=== PATIENT | female | born 1990 | race Two or more races ===

== ENCOUNTER 2017-09-01 23:43 | Observation (INO) | payer OTHER ==
[2017-09-02] MEDS ORDERED: NIFEdipine 10 MG CAP ONE (00:34)
[2017-09-02] MEDS ORDERED: NIFEdipine 10 MG CAP PO ONE (00:45)
[2017-09-02] MEDS ORDERED: PREN-153 OR (01:12)
== END 2017-09-02 00:51 | disposition left against medical advice (07) | DRG 781 ==
LOC: LDRP 23:43
PROVIDERS: ADMIT Specialist; ATTEND Specialist
DX: O26.893 Other specified pregnancy related conditions, third trimester (principal); N89.8 Other specified noninflammatory disorders of vagina; R10.30 Lower abdominal pain, unspecified; Z3A.35 35 weeks gestation of pregnancy
CPT/HCPCS: 59025; 81002; G0378

== ENCOUNTER 2019-09-26 17:40 | Observation (INO) | payer OTHER ==
[~2019-09-26 17:40] MED LIST: PREN-153 OR
== END 2019-09-26 19:31 | disposition home or self-care (01) | DRG 833 ==
LOC: LDRP 17:40
PROVIDERS: ADMIT Specialist; ATTEND Specialist
DX: O60.00 Preterm labor without delivery, unspecified trimester (principal); Z3A.00 Weeks of gestation of pregnancy not specified
CPT/HCPCS: 59025; 76815; 81002; G0378

== ENCOUNTER → 2020-06-25 | Outpatient (CLI) | payer OTHER | END | disposition home or self-care (01) | LOC: LAB 08:32 | PROVIDERS: ATTEND Preventive Medicine Preventive Medicine/Occupational Environmental Medicine | DX: Z02.1 Encounter for pre-employment examination (principal) | CPT/HCPCS: 36415; 86706; 86735; 86762; 86765; 86787 ==

== ENCOUNTER → 2021-11-04 | Outpatient (CLI) | payer BC ==
[~2021-11-04] MED LIST changes: -PREN-153 OR; +PREN1TAB71 OR
[2021-11-04 08:40] LABS: Basophils # (auto) 0 10 ^3/uL (0-0.2); Basophils % (auto) 0.6 % (0.0-2.0); Eosinophils # (auto) 0.1 10 ^3/uL (0-0.8); Eosinophils % (auto) 1.1 % (0.0-7.0); Hematocrit 39.9 % (36.0-46.0); Hemoglobin 13.9 g/dL (12.2-16.2); Lymphocytes # (auto) 1.9 10 ^3/uL (0.4-5.4); Lymphocytes % (auto) 23.3 % (10.0-50.0); Mean Corpuscular Hemoglobin 29.9 pg (28.0-32.0); Mean Corpuscular Hgb Conc. 34.9 g/dL (32.0-36.0); Mean Corpuscular Volume 85.9 fL (80.0-100.0); Monocytes # (auto) 0.6 10 ^3/uL (0-1.3); Monocytes % (auto) 6.8 % (0.0-12.0); Neutrophils # (auto) 5.7 10 ^3/uL (1.6-8.6); Neutrophils % (auto) 68.2 % (37.0-80.0); Red Blood Cells 4.65 10^6/uL (4.0-5.20); Red Cell Distribution Width 13.7 % (11.8-14.3); White Blood Cell 8.3 10^3/uL (4.4-10.8)
[2021-11-04 09:09] LABS: Albumin 3.8 g/dL (3.4-5.0); Calcium 8.6 mg/dL (8.5-10.1)
[2021-11-04 09:13] LABS: Bilirubin, Total 0.6 mg/dL (0.2-1.0); Total Protein 7.9 g/dL (6.4-8.2)
== END | disposition home or self-care (01) ==
LOC: LAB 08:25
PROVIDERS: ATTEND Nurse Practitioner Family
DX: Z00.00 Encounter for general adult medical examination without abnormal findings (principal); B00.2 Herpesviral gingivostomatitis and pharyngotonsillitis; M79.671 Pain in right foot
CPT/HCPCS: 36415; 80053; 85025

== ENCOUNTER 2022-01-07 08:46 | Emergency (ER) | payer BC, OTHER ==
[~2022-01-07] VITALS: Ht 162.6 cm; Wt 170.0 kg
[2022-01-07 09:03] VITALS: BP 114/81
== END 2022-01-07 13:27 | disposition left against medical advice (07) ==
LOC: EEVIPCON 08:46 → ER 08:46
DX: S61.239A Puncture wound without foreign body of unspecified finger without damage to nail, initial encounter (principal); Z53.21 Procedure and treatment not carried out due to patient leaving prior to being seen by health care provider; W46.1XXA Contact with contaminated hypodermic needle, initial encounter; Y93.89 Activity, other specified; Y92.89 Other specified places as the place of occurrence of the external cause; Y99.0 Civilian activity done for income or pay
CPT/HCPCS: 36415; 86703; 86706; 86803; 87340

== ENCOUNTER → 2022-01-16 | Outpatient (CLI) | payer BC | END | disposition home or self-care (01) | LOC: LAB 14:47 | PROVIDERS: ATTEND Podiatrist | DX: S92.901A Unspecified fracture of right foot, initial encounter for closed fracture (principal); X58.XXXA Exposure to other specified factors, initial encounter; Y93.89 Activity, other specified; Y92.89 Other specified places as the place of occurrence of the external cause; Y99.8 Other external cause status | CPT/HCPCS: 36415; 82565; 84520 ==